=== PATIENT | male | born 1945 | race Caucasian/White ===

== ENCOUNTER → 2017-10-22 11:19 | Outpatient (CLI) | payer MEDICARE, OTHER | END | disposition home or self-care (01) | LOC: D.CT 10-18 10:00 | DX: R91.8 Other nonspecific abnormal finding of lung field (principal) ==

== ENCOUNTER 2019-04-27 15:46 | Emergency (ER) | payer MEDICARE, OTHER ==
[2019-04-27 15:49] VITALS: Wt 100.5 kg
[2019-04-27] MEDS ORDERED: ROPINIROLE HCL2 MG PO (15:55)
[2019-04-27] MEDS ORDERED: BACLOFEN10 MG PO (15:55)
[2019-04-27 16:30] LABS: APTT 34.8 SECONDS (22.8-39.4); INR 1.05 (0.85-1.17); PROTIME 13.2 SECONDS (11.6-15.0)
[2019-04-27 16:32] LABS: BASOPHILS 1.3 % (0-2); EOSINOPHILS 4.1 % (0-7); HEMATOCRIT 42.2 % (42.0-54.0); HEMOGLOBIN 15.1 g/dL (13.5-17.5); IMMATURE GRANULOCYTES 0.1 % (0-5); LYMPHOCYTES 23.3 % (15-50); MCH 32.5 pg (26.0-34.0); MCHC 35.8 g/dL (31.0-37.0); MCV 90.9 fL (80.0-100.0); MEAN PLATELET VOLUME 10.5 fL (7.4-10.4); MONOCYTES 8.2 % (2-11); PLATELET COUNT 197 10x3/uL (130-400); RBC 4.64 10x6/uL (4.20-6.10); RDW 14.1 % (11.5-14.5); WBC 7.6 10x3/uL (4.8-10.8)
[2019-04-27 16:38] LABS: ALBUMIN 3.8 g/dL (3.4-5.0); ALKALINE PHOSPHATASE 70 U/L (46-116); ALT (SGPT) 27 U/L (10-68); BILIRUBIN - TOTAL 0.66 mg/dL (0.2-1.3); CALC OSMOLALITY 289 mosm/kg (275-300); CALCIUM 8.4 mg/dL (8.5-10.1); CARBON DIOXIDE 29.3 mmol/L (21.0-32.0); CHLORIDE - SERUM 106 mmol/L (98-107); CREATININE - SERUM 1.3 mg/dL (0.6-1.3); GLUCOSE 154 mg/dL (74-106); POTASSIUM - SERUM 3.7 mmol/L (3.5-5.1); PROTEIN - SERUM 6.9 g/dL (6.4-8.2); SODIUM 143 mmol/L (136-145); UREA NITROGEN 17 mg/dL (7-18); eGFR NON AFRICAN AMERICAN 57 mL/min (90-120)
[2019-04-27 16:49] LABS: CKMB 4.4 U/L (0.0-3.6); CREATINE KINASE 333 UL (21-232); MAGNESIUM - SERUM 1.5 mg/dL (1.8-2.4); THYROID STIMULATING HORMONE 0.85 uIU/mL (0.36-3.74); TROPONIN-I 0.031 ng/mL (0.000-0.060)
[2019-04-27 18:27] VITALS: BP 135/96
== END 2019-04-27 18:27 | disposition home or self-care (01) ==
LOC: D.ER 15:46
PROVIDERS: Family Medicine
DX: I95.1 Orthostatic hypotension (principal); R53.1 Weakness

== ENCOUNTER → 2019-05-22 14:10 | Outpatient (CLI) | payer MEDICARE, OTHER ==
[~2019-05-22 14:10] MED LIST: BACLOFEN10 MG PO; ROPINIROLE HCL2 MG PO
== END | disposition home or self-care (01) ==
LOC: D.RT 05-12 15:00
PROVIDERS: ATTEND Family Medicine
DX: J42 Unspecified chronic bronchitis (principal)

== ENCOUNTER → 2019-08-01 16:06 | Outpatient (CLI) | payer MEDICARE, OTHER | END | disposition home or self-care (01) | LOC: D.MRI 16:00 | PROVIDERS: ATTEND Clinical Nurse Specialist Family Health | DX: M54.16 Radiculopathy, lumbar region (principal) ==

== ENCOUNTER → 2019-12-24 11:28 | Outpatient (CLI) | payer MEDICARE, OTHER | END | disposition home or self-care (01) | LOC: D.HCCECHO 11:28 | PROVIDERS: ATTEND Internal Medicine Interventional Cardiology | DX: I20.9 Angina pectoris, unspecified (principal) ==

== ENCOUNTER 2020-01-12 08:10 | Outpatient (CLI) | payer MEDICARE, OTHER ==
[~2020-01-12] VITALS: Ht 172.7 cm; Wt 104.7 kg
--- NOTE | ~2020-01-12 | HEMODYNAMI ---
PATIENT:JAEL MOORE MEDICAL RECORD: [id number] : 45 LOCATION:[facility] ADMISSION DATE: 01/12/20 Generatedon:01/12/202011:31 Patient name: JAEL MOORE Patient #: [id number] SSN: [id number] : 1945 Date of study: 01/12/2020 Page: Of Hemodynamic Procedure Report Patient Data Patient Demographics Procedure consent was obtained First Name: JAEL Gender: Male Last Name: TERESA Suffix: Jr Lorena Initial: LOGAN : 1945 Patient #: [id number] Age: 74 year(s) Race: SSN: [id number] Additional ID: [id number] Contact details [address]: [address] [place] [address] [place] State: [place] City: [place] Zip code: [address] Admission Admission Data Admission Date: 01/12/2020 Admission Time: 8:10 Arrival Date: 01/12/2020 Arrival Time: 0:00 Admit Source: Other Insurance Payor: Medicare [facility] #: [id number] Height (in.): 68 BSA: 2.17 (m2) Height (cm.): 172.72 BMI: 35.1 (kg/m2) Weight (lbs.): 230.87 Weight (kg.): 104.72 Lab Results Lab Result Date: 01/12/2020 Lab Result Time: 0:00 Biochemistry Name Units Result Min Max BUN mg/dl 28 --(----)-* 7 18 Creatinine mg/dl 1.4 --(----)*- 0.6 1.3 eGFR ml/min 53 *-(----)-- 90 120 NONAFRICAN CBC Name Units Result Min Max Hematocrit % 52 --(---*)-- 42 54 Hemoglobin g/dl 17.8 --(----)*- 13.5 17.5 Procedure Procedure Types Cath Procedure Diagnostic Procedure LHC LHC w/Coronaries Sedation Charges Moderate Sedation up to 15 minutes PCI Procedure Coronary Stent Coronary Stent Initial Hemochron ACT Test Procedure Description Procedure Date Procedure Date: 01/12/2020 Procedure Start Time: 10:51 Procedure End Time: 11:22 Procedure Staff Name Function Sophie Alaniz RT Monitor Lupillo Buckley RN Nurse Toño Ken MD Performing Physician Laila Phillips RT Scrub Procedure Data Cath Procedure Fluoroscopy Diagnostic fluoroscopy Total fluoroscopy Time: 7.9 time: 7.9 min min Diagnostic fluoroscopy Total fluoroscopy dose: dose: 1372 mGy 1372 mGy Contrast Material Contrast Material Type Amount (ml) Isovue 300 113 Entry Location Entry Primary Successful Side Size Upsize Upsize Entry Closure Sweet ccessful Closure Location (Fr) 1 (Fr) 2 (Fr) Remarks Device Remarks Radial Right 6 Fr artery Short Femoral Right 6 Fr Manual artery Short Compression Estimated blood loss: 5 ml Diagnostic catheters Device Type Used For End Catheter Placement DIAGNOSTIC [place] 110cm 5 Multi-vessel Fr catheter ([id number]) Angiography Procedure Complications No complications Procedure Medications Medication Administration Route Dosage Oxygen etCO2 Nasal cannula 2 l/min Lidocaine 2% added to field 20 Heparin Flush Bag added to field 2 bags (1000units/500ml NS) 0.9% NaCl I.V. 100 ml/hr Versed I.V. 2 mg Fentanyl I.V. 50 mcg Versed I.V. 1 mg Radial Cocktail I.A. 1 syringe (Verapamil 2mg/Nitro 400mcg/Heparin 1500units) Versed I.V. 1 mg Heparin Bolus I.V. 4000 units Integrilin (Bolus I.V. 9.5 ml 2mg/ml) Versed I.V. 1 mg Hemodynamics Rest HGB: 17.8 (g/dl) Heart Rate: 90 (bpm) Pressure Samples Time Site Value (mmHg) Purpose Heart Use Rate(bpm) 10:54 LV 91/47,39 Snapshot 91 Gradients Valve Time Site Site Mean SEP/DFP Peak To Heart Use 1 2 (mmHg) (sec/min) Peak Rate (mmHg) (bpm) Aortic 10:54 LV AO 81 Snapshots Pre Cath Intra NCS Post Cath Vital Signs Time Heart Resp SPO2 etCO2 NIBP Rhythm Pain Sedation Rate (ipm) (%) (mmHg) (mmHg) Status Level (bpm) 10:43:17 87 16 98 0 89/64(79) A-Fib 0 (11) 10(A) , No pain 10:48:23 100 20 96 0 111/72(96) A-Fib 0 (11) 10(A) , No pain 10:52:43 89 12 98 0 107/69(86) A-Fib 0 (11) 10(A) , No pain 10:56:57 115 15 96 0 115/77(95) A-Fib 0 (11) 9(A) , No pain 11:01:15 94 14 95 0 99/73(84) A-Fib 0 (11) 9(A) , No pain 11:05:37 90 26 94 0 113/59(93) A-Fib 0 (11) 9(A) , No pain 11:09:59 91 27 94 0 110/65(82) A-Fib 0 (11) 9(A) , No pain 11:14:19 87 12 95 0 109/79(93) A-Fib 0 (11) 9(A) , No pain 11:18:42 89 15 97 0 120/75(87) A-Fib 0 (11) 10(A) , No pain Medications Time Medication Route Dose Verified Delivered Reason Not es Effectiveness by by 10:43:40 Oxygen etCO2 2 l/min Toño Wesley used for Nasal St Jd Buckley RN procedure cannula 10:44:35 Lidocaine 2% added 20ml Toño Wardie for local to vial St Jd Buckley RN anesthetic field SARKAR 10:44:43 Heparin Flush added 2 bags Toño Wesley used for Bag to St Jd Buckley RN procedure (1000units/500ml field SARKAR NS) 10:44:51 0.9% NaCl I.V. 100 Toño Wesley Per physician ml/hr St Jd Buckley RN, MD 10:46:36 Versed I.V. 2 mg Toño Wesley for sedation St Jd Buckley RN, MD 10:46:46 Fentanyl I.V. 50 mcg Toño Wesley for sedation St Jd Buckley RN, MD 10:53:13 Versed I.V. 1 mg Toño Wardie for sedation St Jd Buckley RN, MD 10:53:21 Radial Cocktail I.A. 1 Toño Lundberg for (Verapamil syringe St Jd Ken vasodilation 2mg/Nitro MD SARKAR 400mcg/Hepari 10:59:48 Versed I.V. 1 mg Toño Wesley for sedation St Jd Buckley RN, MD 11:01:10 Heparin Bolus I.V. 4000 Toño Wesley for tereista ified units St Jd Buckley RN anticoagulation with dr MD mast 11:02:42 Integrilin I.V. 9.5 ml Toño Wesley for Was duyen (Bolus 2mg/ml) St Jd Buckley RN antiplatelet 0.5 ml therapy of vial 11:14:05 Versed I.V. 1 mg Toño Wesley for sedation St Jd Buckley RN, MD Procedure Log Time Note 10:13:02 Informed consent obtained and on chart 10:13:20 Diagnostic Cath Status : Elective 10:13:41 Arrival Date: 01/12/2020 12:00:00 AM 10:14:24 Admit Source: Other 10:15:06 Lab Result : Hemoglobin 17.8 g/dl 10:15:06 Lab Result : Hematocrit 52 % 10:15:06 Lab Result : eGFR NONAFRICAN 53 ml/min 10:15:06 Lab Result : BUN 28 mg/dl 10:15:06 Lab Result : Creatinine 1.4 mg/dl 10:15:10 Patient Height : 68 inches 10:15:15 Patient Weight : 230.87 lbs 10:15:26 Insurance Payor : Medicare 10:20:02 Laila Phillips RT(R) sent for patient. Start room use. 10:30:19 Time tracking: Regular hours (M-F 7:00 - 5:00) 10:30:24 Plan of Care:Hemodynamics will remain stable., Cardiac rhythm will remain stable., Comfort level will be maintained., Respiratory function will remain adequate., Patient/ family verbilizes understanding of procedure., Procedure tolerated without complication., Recovers from procedure without complications.. 10:30:30 Patient received from Pre/Post Procedure Room to CCL 1 Alert and oriented. Tansferred to table in Supine position. 10:30:31 Warm blankets applied, and vinita hugger turned on for patient comfort. 10:30:32 Correct patient and procedure confirmed by team. 10:30:34 ECG and BP/O2 sat monitors applied to patient. 10:41:57 Vital chart was started 10:41:58 Baseline sample Acquired. 10:42:03 Rhythm: sinus tachycardia 10:42:05 Full Disclosure recording started 10:42:09 H&P Date Dictated: 01/12/2020 Within 30 days and on chart., H&P Addendum completed by physician on day of procedure. (MUST COMPLETE FOR ALL OUTPATIENTS). 10:42:10 Pre-procedure instructions explained to patient. 10:42:11 Pre-op teaching completed and patient verbalized understanding. 10:42:13 Family in patients room. 10:42:14 Patient NPO since Midnight. 10:42:18 Is the patient allergic to Iodine/contrast media? No. 10:42:19 Was the patient premedicated? Yes 10:42:21 Is patient on blood thinner?Yes 10:42:32 ACC The patient was administered the following blood thiners within the last 24 hours: Xarelto 10:42:34 Patient diabetic? No. 10:42:37 Previous problem with sedation/anesthesia? No ? 10:42:39 Snore? Yes 10:42:41 Sleep apnea? No 10:42:43 Deviated septum? No 10:42:45 Sticks out tongue? Yes 10:42:45 Opens mouth fully? Yes 10:42:47 Airway obstruction? No ? 10:42:54 Dentures? No ? 10:42:58 Pre procedure: right dorsailis pedis pulse 2+ Normal; easily identifiable; not easily obliterated 10:43:01 Pre procedure: left dorsailis pedis pulse 2+ Normal; easily identifiable; not easily obliterated 10:43:05 Patient pain scale 0/10 ?. 10:43:11 IV patent on arrival in left forearm with 0.9% NaCl at O. 10:43:13 Lab results completed and on chart. 10:43:33 Stress Test: yes; abnormal inferior, apical 10:43:37 Risk of Mortality: 0.4 10:43:40 Oxygen 2 l/min etCO2 Nasal cannula was administered by Lupillo Buckley RN; used for procedure; Verbal order read back and verified. 10:43:41 Risk of blood transfusion: 0.2 10:43:45 Risk of JAMEE: 2.8 10:44:35 Lidocaine 2% 20ml vial added to field was administered by Lupillo Buckley RN; for local anesthetic; Verbal order read back and verified. 10:44:43 Heparin Flush Bag (1000units/500ml NS) 2 bags added to field was administered by Lupillo Buckley RN; used for procedure; Verbal order read back and verified. 10:44:50 Right Radial & Right Groin area was prepped with chlora-prep and draped in sterile fashion 10:44:51 0.9% NaCl 100 ml/hr I.V. was administered by Lupillo Buckley RN; Per physician; Verbal order read back and verified. 10:44:53 Sharps counted by scrub and verified by R.N. 10:44:53 Alarms reviewed by R. N. 10:44:54 Physician arrived 10:44:55 Final Timeout: patient, procedure, and site verified with staff and physician. All members of the team are in agreement. 10:44:55 --------ALL STOP TIME OUT------ 10:44:57 Right Radial & Right Groin site verified by team. 10:45:00 Fire Safety Assessment: A--An alcohol-based skin anteseptic being used preoperatively., C--Open oxygen or nitrous oxide is being used., D--An ESU, laser, or fiber-optic light is being used. 10:45:04 Physical assessment completed. ASA score P 2 - A patient with mild systemic disease as per Toño Ken MD. 10:46:29 3a) 45-59 Moderately reduced kidney function. 10:46:36 Versed 2 mg I.V. was administered by Lupillo Buckley RN; for sedation; Verbal order read back and verified. 10:46:46 Fentanyl 50 mcg I.V. was administered by Lupillo Buckley RN; for sedation; Verbal order read back and verified. 10:46:53 Maximum allowable contrast dose (3.7 X eGFR X 0.75)155 ml. 10:46:58 Sedation plan: IV Moderate Sedation Medication:Versed, Fentanyl 10:47:02 Use device set Radial Dx or PCI 10:47:03 ACIST Syringe (71411) opened to sterile field. 10:47:04 ACIST Hand Control (95600) opened to sterile field. 10:47:04 Bag Decanter (2001S) opened to sterile field. 10:47:04 Medline Cath Pack ([id number]) opened to sterile field. 10:47:05 Tegaderm 4 x 4 (1626W) opened to sterile field. 10:47:05 ACIST Manifold (39389) opened to sterile field. 10:47:06 MBrace Wrist Support ([id number]) opened to sterile field. 10:47:08 EMERALD Guide Wire (502-554) opened to sterile field. 10:47:09 SHEATH 6FR RAIN (1890891) opened to sterile field. 10:49:36 Zero performed for pressure channel P1 10:51:38 Procedure started. 10:51:42 Local anesthetic to right radial artery with Lidocaine 2% by Toño Ken MD.INITIAL ACCESS ONLY 10:51:52 A 6 Fr Short sheath was inserted into the Right Radial artery 10:53:01 A DIAGNOSTIC [place] 110cm 5 Fr catheter (222782) was advanced over the wire and used for Multi-vessel Angiography. 10:53:13 Versed 1 mg I.V. was administered by Lupillo Buckley RN; for sedation; Verbal order read back and verified. 10:53:21 Radial Cocktail (Verapamil 2mg/Nitro 400mcg/Heparin 1500units) 1 syringe I.A. was administered by Toño Ken MD; for vasodilation; Verbal order read back and verified. 10:54:26 LV hemodynamics recorded. 10:54:27 LV gram done using JENKINS 10:54:29 Injector settings: Ml/sec: 5, Volume: 15, 10:54:35 EF : 50 % 10:54:58 LCA angiography performed. 10:55:00 Injector settings: Ml/sec: 3, Volume: 6, 10:56:55 RCA angiography performed. 10:56:59 Injector settings: Ml/sec: 3, Volume: 6, 10:57:54 Catheter removed. 10:57:57 ACCDominant side:Right 10:58:02 Proceeding to intervention. 10:58:31 SHEATH 6FR [place] (VTC084) opened to sterile field. 10:58:32 INFLATOR Merit BasixCompak (WT8964) opened to sterile field. 10:58:33 WHISPER 300cm guide wire ([id number]) opened to sterile field. 10:59:16 Local anesthetic to right femoral artery with Lidocaine 2% by Toño Ken MD.ADDITIONAL ACCESS 10:59:34 GUIDE 6FR EBU 3.5 catheter ([id number]) opened to sterile field. 10:59:48 Versed 1 mg I.V. was administered by Lupillo Buckley RN; for sedation; Verbal order read back and verified. 11:00:15 A 6 Fr Short sheath was inserted into the Right Femoral artery 11:00:51 6 Fr 3bu 3.5 guide catheter was inserted over the wire 11:01:10 Heparin Bolus 4000 units I.V. was administered by Lupillo Buckley RN; for anticoagulation; verified with dr mast Verbal order read back and verified. 11:02:42 Integrilin (Bolus 2mg/ml) 9.5 ml I.V. was administered by Lupillo Buckley RN; for antiplatelet therapy; Wasted 0.5 ml of vial Verbal order read back and verified. 11:10:11 whisper wire advanced. 11:10:12 Wire advanced across lesion. 11:11:29 Place stent Inflation Number: 1 A LAYO OTW 3.0 x 26 stent ([id number]) was prepped and advanced across the Mid LAD 80. The stent was deployed at 14 GARCIA for 0:30 (min:sec) 0. 11:13:19 Stent catheter was removed intact over wire. 11:14:05 Versed 1 mg I.V. was administered by Lupillo Buckley RN; for sedation; Verbal order read back and verified. 11:15:49 Place stent Inflation Number: 2 A LAYO RX 3.0 x 15 stent ([id number]) was prepped and advanced across the Mid LAD 80. The stent was deployed at 15 GARCIA for 0:30 (min:sec) 0. 11:16:32 Stent catheter was removed intact over wire. 11:16:33 Wire removed. 11:16:34 Guide catheter removed. 11:16:44 ZEPHYR REGULAR TR BAND (159407) opened to sterile field. 11:17:31 Sheath removed intact; hemostasis achieved with Manual Compression to the Right Femoral artery. 11:18:13 Procedure ended.(Physican Out) 11:18:24 Fluoroscopy time 07.90 minutes. 11:18:29 Fluoroscopy dose: 1372 mGy 11:18:29 Flurop Dose total: 1372 11:18:35 Dose Area Product 79513 mGy/cm. 11:18:40 Contrast amount:Isovue 300 113ml. 11:18:42 Maximum allowable dose exceeded? No. 11:18:45 Sharps counted by scrub and verified by R.N. 11:19:01 Post-op/insertion site Right Femoral artery dressed using a 4 x 4 and Tegaderm. 11:19:02 Post Procedure Pulses reassessed and unchanged 11:19:06 Post procedure rhythm: sinus rhythm 11:19:10 Estimated blood loss: 5 ml 11:19:13 Post procedure instruction explained to patient.Patient verbalizes understanding. 11:19:14 Patient needs reinforcement of post procedure teaching. 11:19:34 Procedure type changed to Cath procedure, Diagnostic procedure, LHC, [facility] w/Coronaries, Sedation Charges, Moderate Sedation up to 15 minutes, PCI procedure, Coronary Stent, Coronary Stent Initial, Hemochron ACT Test 11:19:38 Procedure and supply charges have been captured, reviewed, submitted and are correct. 11:19:49 Procedure Complication : No complications 11:19:51 Vital chart was stopped 11:19:[address] [facility] Findings: MVD- PCI performed (see procedure note) 11:19:57 Operative report dictated upon procedure completion. 11:20:00 Operative report dictated upon procedure completion. 11:20:03 See physician's report for complete and final results. 11:20:07 Patient transfered to Pre/Post Procedure Room with Stretcher. 11:20:16 ACC-PCI Only Patient was given prescriptions, or instructed by Toño Ken MD to start/continue the following medications upon discharge: Plavix 11:20:18 End room use (Document Last) 11:22:15 Full Disclosure recording stopped 11:22:15 Procedure ended. 11:23:21 ACT drawn and resulted at 370 seconds. (normal therapeutic range 180-240 seconds). 11:30:26 EXOSEAL 6Fr (EX600) opened to sterile field. 11:31:18 Femstop placed over the right femoral artery at 150 mmHg. Hemostasis achieved. Intervention Summary Intervention Notes Time ActionType Lesion and Equipment Used Action# Pressure Duration Attributes 11:11:29 Place stent Mid LAD LAYO OTW 3.0 x 1 14 00:30 26 stent ([id number]) 11:15:49 Place stent Mid LAD LAYO RX 3.0 x 2 15 00:30 15 stent ([id number]) Device Usage Item Name Manufacture Quantity Catalog Hospital Part Current [facility] Lot# / Number Charge Number Stock Stock Serial# Code ACIST Syringe Acist 1 96484 425336 593131 226029 20 (70746) Medical Systems Inc Medline Cath Medline 1 [id number] 182887 07331 039466 5 Pack ([id number]) Bag Decanter Microtek 1 2001S 898030 09352 125266 5 (2001S) Medical Inc. ACIST Hand Acist 1 87794 676158 421770 248872 5 Control Medical (23685) Systems Inc ACIST Manifold Acist 1 24561 013773 116025 979447 5 (63009) Medical Systems Inc Tegaderm 4 x 4 3M 1 1626W 224368 894361 971084 5 (1626W) MBrace Wrist Advanced 1 140-0250-00 352504 84340 265119 5 Support Vascular ([id number]) Dynamics EMERALD Guide Cardinal 1 502-455 773693 506865 961852 5 Wire (502-455) Health SHEATH 6FR Cardinal 1 2468809 460228 8107574 655801 5 RAIN (4060066) Health DIAGNOSTIC Terumo 1 40-5013 974934 680805 488613 5 [place] 110cm 5 Fr catheter (983709) SHEATH 6FR Terumo 1 UJR631 896627 910392 205890 40 [place] (PNG844) INFLATOR Merit Merit 1 RI9904 293982 924816 892084 15 BasV2contactFillmore Community Medical Centertriptap Medical (GJ5163) WHISPER 300cm Cueva 1 [id number] 744472 032994 521568 5 guide wire Vascular (4468549CL) GUIDE 6FR EBU Medtronic 1 [id number] 537326 92679 424345 3 3.5 catheter ([id number]) LAYO OTW 3.0 x Medtronic 1 [id number] 420024 3493100 079677 5 [id number] 26 stent ([id number]) LAYO RX 3.0 x Medtronic 1 [id number] 419292 2875568 534406 5 [id number] 15 stent ([id number]) ZEPHYR REGULAR Cardinal 1 025273 550656 6448657 732580 5 TR BAND Health (879773) EXOSEAL 6Fr Cardinal 1 EX600 184246 866773 027539 10 (EX600) Health Signature Audit [place] Stage Time Signature Unsigned Intra-Procedure 01/12/2020 Sophie Alaniz 11:22:38 AM RT(R) Intra-Procedure 01/12/2020 Sophie Alaniz 11:22:52 AM RT(R) Intra-Procedure 01/12/2020 Lupillo Buckley RN 11:23:19 AM Intra-Procedure 01/12/2020 Toño Ken MD 11:23:44 AM Jd SARKAR 01/12/2020 11:30:22 AM Intra-Procedure 01/12/2020 Toño House 11:31:32 AM Jd SARKAR [id number] [place] [address]
[2020-01-12] MEDS ORDERED: AMIODARONE HCL200 MG PO (08:28)
[2020-01-12] MEDS ORDERED: COREG12.5 MG PO (08:29)
[2020-01-12] MEDS ORDERED: XARELTO20 MG PO (08:29)
[2020-01-12] MEDS ORDERED: TRIAMTERENE-HC1 EAC6 PO (08:31)
[2020-01-12] MEDS ORDERED: LEVOTHYROXINE125 MCG PO (08:32)
[2020-01-12 08:46] VITALS: BP 141/80; Ht 172.7 cm; Wt 104.7 kg
[2020-01-12 08:55] LABS: BASOPHILS 1.3 % (0-2); EOSINOPHILS 5.1 % (0-7); HEMOGLOBIN 17.8 g/dL (13.5-17.5); IMMATURE GRANULOCYTES 0.3 % (0-5); LYMPHOCYTES 26.1 % (15-50); MCH 32.6 pg (26.0-34.0); MCHC 34.2 g/dL (31.0-37.0); MCV 95.2 fL (80.0-100.0); MEAN PLATELET VOLUME 10.9 fL (7.4-10.4); NEUTROPHILS 58.2 % (40-80); PLATELET COUNT 185 10x3/uL (130-400); RBC 5.46 10x6/uL (4.20-6.10); RDW 13.7 % (11.5-14.5)
[2020-01-12 09:10] LABS: ANION GAP 10.9 mmol/L (8-16); CARBON DIOXIDE 27.3 mmol/L (21.0-32.0); CHOL - HDL RATIO 6.1 ratio (2.3-4.9); CREATININE - SERUM 1.4 mg/dL (0.6-1.3); POTASSIUM - SERUM 4.2 mmol/L (3.5-5.1)
--- NOTE | 2020-01-12 11:40 | NUR ---
PT RECEIVED BACK TO ROOM FROM DIRECTOR REGULATORY AFFAIRS FOR RECOVERY. PT DROWSY BUT THRASHING IN BED DUE TO BACK PAIN AND RESTLESS LEG. R ARM WRIST W ZYPHER BAND AND IMMOBILIZER IN PLACE, DRESSING CDI NO S/S HEMATOMA OR BLEEDING NOTED. ARM PINK AND WARM, CAP REFILL BRISK. R GROIN W FEMOSTOP, 160 PRESSURE ON ARRIVAL. NO BLEEDING NOTED, SMALL AREA HEMATOMA NOTED, WILL WATCH. NO BLEEDING NOTED. LEG PINK AND WARM, PEDAL PUSLES PALPABLE BUT WEAK DUE TO FEMOSTOP. PT AND INSTRUCTED ON IMPORTANCE OF KEEPING HEAD ON PILLOW AND LEG STRAIGHT. PT PLACED ON CARDIAC MONITORS AND O2 VIA NC AT 2L. HR 75, BP 109/62, RR 15, SAT 96. IV PATENT INFUSING VIA R ARM. AT BS, CALL LIGHT IN REACH
--- NOTE | 2020-01-12 11:58 | NUR ---
PT C/O BACK PAIN WON'T STAY STILL OR KEEP LEG STRAIGHT. 2MG MORPHINE GIVEN SIVP PER ORDERS. VSS. R GROIN W FEMOSTOP IN PLACE, NO ACTIVE BLEEDING NOTED, SMALL AREA HEMATOMA NO CHANGE. CALL LIGHT IN REACH
--- NOTE | 2020-01-12 12:10 | NUR ---
PT RESTING A LITTLE MORE COMFORTABLY, PAIN LESS 5/10. ZBAND AND IMMOBILIZER IN PLACE, NO BLEEDING OR S/S HEMATOMA NOTED. R GROIN W FEMOSTOP IN PLACE, NO BLEEDING NOTED. NO CHANGE IN SM HEMATOMA. VSS. CALL LIGHT IN REACH, AT BEDSIDE
--- NOTE | 2020-01-12 12:45 | NUR ---
PT RESTING COMFORTABLY, STATES PAIN IS MUCH BETTER. R GROIN AREA SOFT, NO BLEEDING NOTED. FEMOSTOP PRESSURE REDUCED TO 80, NO BLEEDING . ZBAND AND IMMOBILIZER IN PLACE, DRESSING CDI NO S/S HEMATOMA OR BLEEDING NOTED. VSS. CALL LIGHT IN REACH, REMAINS AT BS
[2020-01-12] MEDS ORDERED: PLAVIX75 MG PO (12:54)
--- NOTE | 2020-01-12 13:13 | NUR ---
PT C/O HEARTBURN DUE TO PLAVIX, SIPS OF SPRITE GIVEN. NO BLEEDING OR HEMATOMA TO WRIST, ARM PINK AND WARM. R GROIN REMAINS SOFT, NO BLEEDING NOTED. FEMOSTOP REMAINS IN PLACE. CALL LIGHT IN REACH, VSS.
--- NOTE | 2020-01-12 13:41 | NUR ---
REMAINING AIR REMOVED FROM FEMOSTOP, NO BLEEDING NOTED. ZBAND AND IMMOBILIZER IN PLACE, NO BLEEDING OR S/S HEMATOMA NTOED. VSS. PUDDING GIVEN PER PT REQUEST. REMAINS AT BS, CALL LIGHT IN REACH
--- NOTE | 2020-01-12 14:01 | NUR ---
FEMOSTOP REMOVED, NO BLEEDING OR HEMATOMA NOTED. 4X4 AND LG TEGADERM DRESSING APPLIED. LEG PINK AND WARM, PEDAL PULSES PALPABLE. ZBAND AND IMMOBILIZER REMAIN IN PLACE, NO S/S HEMATOMA NOTED. PT TOLERATING PO FLUIDS AND PUDDING.
--- NOTE | 2020-01-12 14:20 | NUR ---
R GROIN SOFT, DRESSING CDI NO S/S HEMATOMA OR BLEEDING. ZBAND IN PLACE, 4CC AIR REMOVED W/O BLEEDING OR HEMATOMA NTOED. HOB ELEVATED SLIGHTLY, SANDWICH TRAY AND COLA SERVED. HR 62, BP 108/76, RR 14, SAT 98 ON ROOM AIR AFTER O2 REMOVED.
--- NOTE | 2020-01-12 14:42 | NUR ---
3 ADD'L CC AIR REMOVED FROM Z BAND, NO BLEEDING NOTED. R GROIN REMAINS SOFT, DRESSING CDI NO S/S HEMATOMA OR BLEEDING NOTED. PT TOLERATING PO FLUIDS AND FOOD. PT DENIES PAIN OR HEARTBURN. VSS. REMAINS AT BEDSIDE.
--- NOTE | 2020-01-12 15:00 | NUR ---
DISCHARGE INSTRUCTIONS REVIEWED W PT AND , BOTH VERBALIZED UNDERSTANDING. EXPLAINED IMPORTANCE OF GETTING PLAVIX FILLED AND STARTING IT TOMORROW. IV REMOVED W CATH INTACT, MONITORS REMOVED. REMAINING AIR REMOVED FROM ZBAND, NO BLEEDING OR S/S HEMATOMA. R GROIN SOFT, DRESSING REMAINS CDI NO S/S HEMATOMA. PT UP TO DRESS FOR DISCHARGE W ASSIST FROM .
--- NOTE | 2020-01-12 15:10 | NUR ---
PT AMBULATED TO BR, VOIDING W/O DIFFICULITY. ZBAND REMOVED, NO BLEEDING OR HEMATOMA NOTED. 2X2 AND SM TEGADERM DRESSING APPLIED. IMMOBILIZER REPOSITIONED
--- NOTE | 2020-01-12 15:22 | NUR ---
PT DISCHARGED VIA WC TO WAITING IN PRIVATE VEHICLE. PT HAD ALL BELONGINGS AND DISCHARGE PAPERWORK IN HAND
--- NOTE | 2020-01-13 13:51 | OP ---
PATIENT NAME: JAEL MOORE MEDICAL RECORD: [id number] :45 LOCATION:D.CAT ADMISSION DATE: SURGEON: ANNA MCPHERSON MD DATE OF OPERATION: 01/12/2020 PROCEDURE: Left heart catheterization, selective coronary angiography, right femoral artery approach. CATHETERS: A 5-Anguillan sheath, 5/4 left and right Janell, 5/4 pig. The procedure was well tolerated. The patient returned to the lyman, sheath removed. ExoSeal device placed. FINDINGS: Left ventriculography in 30-degree JENKINS view; normal wall motion, normal systolic function. EF is 55%. CORONARY ANATOMY: LEFT MAIN: Left main is free of disease. LAD: Has a long diffuse 80% stenosis, correlating nicely with anterior apical defect on nuke. CIRCUMFLEX: Left dominant system luminal irregularities, free of disease. RIGHT CORONARY ARTERY: Rudimentary vessel, free of disease. PLAN: Intervention LAD momentarily. DESCRIPTION OF PROCEDURE: A 5-Anguillan sheath was changed to 6-Anguillan sheath. XB LAD guiding catheter provided excellent guide catheter followed by 300 cm Whisper wire placed across, tightly occluded 80% LAD down this portion of the vessel. Stents deployed were a 3.0 x 22 and a 3.0 x 15, both drug-eluting stents up to 16 atmospheres for 45 seconds. Final angiography shows excellent resolution, diffuse 80% stenosis, no significant residual. BELÉN flow was 3 throughout the procedure. Heparin, Integrilin were used during the case. Plavix was loaded in the lab. Sheath was closed with ExoSeal device. TRANSINT:[id number] Voice Confirmation ID: [id number] DOCUMENT ID: [id number] ANNA MCPHERSON MD at 1351 CC: [id number] DICTATION DATE: 01/12/20 1132 LATIN DANCE INSTRUCTOR: 01/12/20 2342 DEP CLI 01/12/20 [place] [id number]
== END 2020-01-12 15:20 | disposition home or self-care (01) ==
LOC: D.CATH 08:10
PROVIDERS: ATTEND Internal Medicine Interventional Cardiology
DX: I25.119 Atherosclerotic heart disease of native coronary artery with unspecified angina pectoris (principal); R06.00 Dyspnea, unspecified; I48.91 Unspecified atrial fibrillation; I10 Essential (primary) hypertension; R01.1 Cardiac murmur, unspecified
CPT/HCPCS: 93458; C9600

== ENCOUNTER → 2020-03-09 08:03 | Outpatient (CLI) | payer MEDICARE, OTHER ==
[2020-01-12 08:46] VITALS: BMI 35.1
[~2020-03-09 08:03] MED LIST changes: +AMIODARONE HCL200 MG PO; +COREG12.5 MG PO; +LEVOTHYROXINE125 MCG PO; +PLAVIX75 MG PO; +TRIAMTERENE-HC1 EAC6 PO; +XARELTO20 MG PO
== END | disposition home or self-care (01) ==
LOC: D.CT 08:03
PROVIDERS: ATTEND Family Medicine
DX: I70.213 Atherosclerosis of native arteries of extremities with intermittent claudication, bilateral legs (principal)

== ENCOUNTER → 2020-04-07 07:55 | Day surgery (SDC) | payer MEDICARE, OTHER ==
[2020-01-12 08:46] VITALS: BMI 35.1
[~2020-04-07 07:55] MED LIST changes: +BETAPACE 80 MG80 MG PO; +BISOPROLOL FUMAR5 MG PO
[2020-04-07 08:17] LABS: BASOPHILS 0.6 % (0-2); EOSINOPHILS 0.4 % (0-7); HEMOGLOBIN 15.1 g/dL (13.5-17.5); IMMATURE GRANULOCYTES 0.1 % (0-5); LYMPHOCYTES 13.8 % (15-50); MCH 33.7 pg (26.0-34.0); MCHC 35.1 g/dL (31.0-37.0); MEAN PLATELET VOLUME 10.5 fL (7.4-10.4); MONOCYTES 7.2 % (2-11); NEUTROPHILS 77.9 % (40-80); PLATELET COUNT 186 10x3/uL (130-400); RBC 4.48 10x6/uL (4.20-6.10); WBC 6.8 10x3/uL (4.8-10.8)
[2020-04-07 08:29] LABS: CALCIUM 9.3 mg/dL (8.5-10.1); CARBON DIOXIDE 25.2 mmol/L (21.0-32.0); CREATININE - SERUM 1.8 mg/dL (0.6-1.3); POTASSIUM - SERUM 4.2 mmol/L (3.5-5.1)
[2020-04-07 08:34] LABS: INR 1.89 (0.85-1.17); PROTIME 21.5 SECONDS (11.6-15.0)
[2020-04-07 08:35] LABS: APTT 51.8 SECONDS (22.8-39.4)
--- NOTE | 2020-04-07 08:54 | NUR ---
0875-ABNORMAL LAB VALUES CALLED TO IOANA VELAZQUEZ RN AND DR. RADFORD-PROCEDURE CANCELLED. INSTRUCTIONS GIVEN TO PATIENT AND . 0850-PT. LEFT AMBULATORY WITH AT SIDE.
== END | disposition home or self-care (01) ==
LOC: D.RAD 04-01 13:00 → D.SP 07:55 → D.RAD 10:00 → EDSTATUS 10:00 → D.SP 10:00
PROVIDERS: ATTEND General Practice
DX: L97.529 Non-pressure chronic ulcer of other part of left foot with unspecified severity (principal); I72.3 Aneurysm of iliac artery; I70.209 Unspecified atherosclerosis of native arteries of extremities, unspecified extremity; Z53.9 Procedure and treatment not carried out, unspecified reason

== ENCOUNTER 2020-04-16 11:40 | Day surgery (SDC) | payer MEDICARE, OTHER ==
[~2020-04-16] VITALS: Ht 172.7 cm; Wt 104.5 kg
--- NOTE | ~2020-04-16 | HEMODYNAMI ---
PATIENT:JAEL MOORE MEDICAL RECORD: [id number] : 45 LOCATION:[facility] ADMISSION DATE: 04/16/20 Generatedon:04/16/202015:14 Patient name: JAEL MOORE Patient #: [id number] SSN: [id number] : 1945 Date of study: 04/16/2020 Page: Of Hemodynamic Procedure Report Patient Data Patient Demographics Procedure consent was obtained First Name: JAEL Gender: Male Last Name: TERESA Suffix: Jr [facility] Initial: LOGAN : 1945 Patient #: [id number] Age: 74 year(s) Race: SSN: [id number] Additional ID: [id number] Contact details [address]: [address] [place] [address] [place] State: [place] City: [place] Zip code: [address] Admission Admission Data Admission Date: 04/16/2020 Admission Time: 11:40 Procedure Procedure Types Cath Procedure Peripheral Cath Diagnostic Procedure Abd/Extremity Extremities Procedure Description Procedure Date Procedure Date: 04/16/2020 Procedure Start Time: 13:51 Procedure Staff Name Function Jd Marinelli MD Performing Physician Paco Upton RT Monitor Preston CHINO RN Nurse Elsi Vasquez RN Nurse SRIDHAR PASCAL RT Scrub Celestina Nath RT Scrub Jael Miller MD Additional personnel Procedure Data Cath Procedure Fluoroscopy Diagnostic fluoroscopy Total fluoroscopy Time: 9.9 time: 9.9 min min Diagnostic fluoroscopy Total fluoroscopy dose: 397 dose: 397 mGy mGy Contrast Material Contrast Material Type Amount (ml) Isovue 300 175 Procedure Medications Medication Administration Route Dosage Lidocaine 1% added to field 20 Heparin Flush Bag added to field 3 bags (1000units/500ml NS) Heparin Bolus I.V. 5000 units Nitroglycerin IC/IA I.A. 300 mcg Nitroglycerin IC/IA I.A. 300 mcg Hemodynamics Rest Pre Cath Intra NCS Post Cath Medications Time Medication Route Dose Verified Delivered Reason Notes Effe ctiveness by by 13:29:50 Lidocaine 1% added 20ml Jd Miles for local to vial Isis Marinelli MD anesthetic field SARKAR 13:30:09 Heparin Flush added 3 Jd Miles used for Bag to bags Isis Marinelli MD procedure (1000units/500ml field SARKAR NS) 14:19:02 Heparin Bolus I.V. 5000 Jd Calzada Per units Pedro Marinelli RN physician 14:27:13 Nitroglycerin I.A. 300 Jd Miles IC/IA mcg Isis Marinelli MD MD 14:41:45 Nitroglycerin I.A. 300 Jd Jd IC/IA mcg Isis Marinelli MD MD Procedure Log Time Note 13:14:00 Paco Upton RT (R) (CV) sent for patient. Start room use. 13:14:03 Time tracking: Regular hours (M-F 7:00 - 5:00) 13:14:13 Plan of Care:Hemodynamics will remain stable., Cardiac rhythm will remain stable., Comfort level will be maintained., Respiratory function will remain adequate., Patient/ family verbilizes understanding of procedure., Procedure tolerated without complication., Recovers from procedure without complications.. 13:14:18 Use device set IR Diagnostic 13:14:19 ACIST Syringe (64361) opened to sterile field. 13:14:20 ACIST Hand Control (33430) opened to sterile field. 13:14:20 ACIST Manifold (61726) opened to sterile field. 13:14:21 Bag Decanter (2002S) opened to sterile field. 13:14:21 Sterile Angiographic Pack opened to sterile field. 13:14:21 Tegaderm 4 x 4 (1626W) opened to sterile field. 13:14:34 Jael Miller MD present and monitoring patient for TIVA. 13:14:39 Patient received from Outpatients to IR Alert and oriented. Tansferred to table in Supine position. 13:14:43 Signed procedure consent form obtained from patient. 13:14:44 Warm blankets applied, and vinita hugger turned on for patient comfort. 13:14:45 Correct patient and procedure confirmed by team. 13:14:46 ECG and BP/O2 sat monitors applied to patient. 13:14:48 - 13:15:12 SEE ANESTHESIA NOTE FOR PRE PROCEDURE ANESTHESIA 13:16:37 - 13:17:13 TUBING Contrast Injection High Pressure (IYM470O) opened to sterile field. 13:17:14 SHEATH 5FR Irving (JYN769) opened to sterile field. 13:17:30 3a) 45-59 Moderately reduced kidney function. 13:18:04 Maximum allowable contrast dose (3.7 X eGFR X 0.75)147 ml. 13:18:23 Right groin area was prepped with chlora-prep and draped in sterile fashion 13:29:50 Lidocaine 1% 20ml vial added to field was administered by Jd Marinelli MD; for local anesthetic; Verbal order read back and verified. 13:30:09 Heparin Flush Bag (1000units/500ml NS) 3 bags added to field was administered by Jd Marinelli MD; used for procedure; Verbal order read back and verified. 13:46:27 Alarms reviewed by R. N. 13:46:28 Alarms reviewed by R. N. 13:46:31 Sharps counted by scrub and verified by R.N. 13:51:19 Physician arrived 13:51:20 --------ALL STOP TIME OUT------ 13:51:20 Final Timeout: patient, procedure, and site verified with staff and physician. All members of the team are in agreement. 13:51:22 Bilateral groins site verified by team. 13:51:27 Fire Safety Assessment: A--An alcohol-based skin anteseptic being used preoperatively., C--Open oxygen or nitrous oxide is being used. 13:51:46 Sedation plan: General Anesthesia Medication:General Anesthesia 13:51:54 Procedure started. 13:51:55 Full Disclosure recording started 13:51:59 Local anesthetic to right femoral artery with Lidocaine 1% by Jd Marinelli MD.INITIAL ACCESS ONLY 13:52:08 DOC .035 wire (F54223) opened to sterile field. 13:52:08 Micropuncture VSI 4FR kit opened to sterile field. 13:52:09 DE LA TORRE 260 wire (J31308) opened to sterile field. 13:52:09 GLIDE WIRE ANGLE 180cm (WS4915) opened to sterile field. 13:52:09 Angiodynamics Omniflush 5Fr 65cm ([id number]) opened to sterile field. 13:52:10 GLIDE CATHETER 5FR ANGLED 65cm (CG507) opened to sterile field. 13:56:24 AMPLATZ Super Stiff 75cm wire ([id number]) opened to sterile field. 14:14:26 COOK SHEATH 6FR RAABE 70CM (L71707) opened to sterile field. 14:15:04 INFLATOR BasixTOUCH (KQ1843) opened to sterile field. 14:18:13 CXI SUPPORT .035 135 CM STR catheter (G63213) opened to sterile field. 14:19:02 Heparin Bolus 5000 units I.V. was administered by Elsi Vasquez RN; Per physician; Verbal order read back and verified. 14:20:08 CHOICE PT Extra Support J 300cm guide wire ([id number]) opened to steril e field. 14:27:13 Nitroglycerin IC/IA 300 mcg I.A. was administered by Jd Marinelli MD; ; Verbal order read back and verified. 14:28:03 Inflate balloon Inflation number: 1 A CHOCOLATE 3.0 x 80 x 150 balloon ([id number]) was prepped and advanced across the Undefined1 , then inflated to 14 GARCIA for 1:10 (min:sec) . 14:40:48 Inflate balloon Inflation number: 2 A CHOCOLATE 3.5 x 80 x 135 balloon ([id number]) was prepped and advanced across the Undefined1 , then inflated to 11 GARCIA for 1:04 (min:sec) . 14:41:45 Nitroglycerin IC/IA 300 mcg I.A. was administered by Jd Marinelli MD; ; Verbal order read back and verified. 14:42:37 Inflation number: 3 The CHOCOLATE 3.5 x 80 x 135 balloon ([id number]) was reinflated across the Undefined1 , to 12 GARCIA for 1:03 (min:sec) . 14:53:33 SHEATH 6FR Irving (JOY987) opened to sterile field. 15:00:06 ANGIOSEAL-VIP PLUS 6 FR opened to sterile field. 15:06:27 Procedure ended.(Physican Out) 15:06:46 Fluoroscopy time 09.90 minutes. 15:06:51 Fluoroscopy dose: 397 mGy 15:06:51 Flurop Dose total: 397 15:07:10 Contrast amount:Isovue 300 175ml. 15:11:56 Post-op/insertion site Right Femoral artery dressed using a 4 x 4 and Tegaderm. 15:12:02 Post right femoral artery:stable 15:12:04 Post Procedure Pulses reassessed and unchanged 15:13:13 SEE ANESTHESIA NOTE FOR POST PROCEDURE ANESTHESIA 15:14:01 Report given to Recovery Room. 15:14:04 Patient transfered to Recovery Room with Stretcher. Intervention Summary Intervention Notes Time ActionType Lesion and Equipment Used Action# Pressure Duration Attributes 14:28:03 Inflate Undefined1 CHOCOLATE 3.0 x 80 1 14 01:10 balloon x 150 balloon ([id number]) 14:40:48 Inflate Undefined1 CHOCOLATE 3.5 x 80 2 11 01:04 balloon x 135 balloon ([id number]) 14:42:37 Reinflate Undefined1 CHOCOLATE 3.5 x 80 3 12 01:03 balloon x 135 balloon ([id number]) Device Usage Item Name Manufacture Quantity Catalog Number Hospital Part Curr ent Minimal Lot# / Charge Number Stock Stock Serial# Code ACIST Syringe Acist Medical 1 26409 556552 121394 1647 98 20 (60393) Systems Inc ACIST Hand Control Acist Medical 1 50752 376460 271052 7740 29 5 (30933) Systems Inc ACIST Manifold Acist Medical 1 56603 841517 143336 6609 45 5 (04892) Systems Inc Bag Decanter Microtek 1 2001S 068763 97334 9837 95 5 () Medical Inc. Sterile Cardinal 1 [id number] 397714 6643 40 5 Angiographic Pack Health Tegaderm 4 x 4 3M 1 1626W 546082 182492 5315 64 5 (1626W) TUBING Contrast [facility] Medical 1 [id number] 690617 214496 0863 87 5 Injection High Pressure (OPD992G) SHEATH 5FR Terumo 1 OWG037 805555 536312 2812 94 5 Irving (PWO585) DOC .035 wire [employer] 1 V90950 554833 7947 17 5 (R70640) Micropuncture VSI VSI VASCULAR 1 7266V 909557 7827 22 5 4FR kit SOLUTIONS DE LA TORRE 260 wire Cook Medical 1 U69253 335919 08486 9993 90 5 (T50549) GLIDE WIRE ANGLE Terumo 1 DD4108 959955 148888 7979 80 5 180cm (DI6362) Angiodynamics Angiodynamics 1 58985045 915612 700773 5123 74 5 Omniflush 5Fr 65cm (65130313) GLIDE CATHETER 5FR Terumo 1 CG507 482288 9514 76 5 ANGLED 65cm (CG507) AMPLATZ Super Converse 1 [id number] 893252 891455 1512 16 5 [id number] Stiff 75cm wire Scientific ([id number]) COOK SHEATH 6FR [employer] Medical 1 W73888 065634 31327 9999 79 1 [id number] RAABE 70CM (C19916) INFLATOR [facility] 1 YI4273 400604 321298 0440 74 5 BasixTOUCH (RO4412) CXI SUPPORT .035 [employer] 1 R83036 389156 691754 4848 49 5 [id number] 135 CM STR catheter (P12850) CHOICE PT Extra Converse 1 [id number] 785063 096139 6564 61 5 [id number] Support J 300cm Scientific guide wire (8073825V0) CHOCOLATE 3.0 x 80 Medtronic 1 [id number] 440218 945866 8208 97 5 [id number] x 150 balloon OTW [id number] ([id number]) [id number] CHOCOLATE 3.5 x 80 Medtronic 1 [id number] 873173 545303 0161 98 5 x 135 balloon O ([id number]) TW SHEATH 6FR Terumo 1 ECN603 157678 073144 6686 13 40 Irving (WQU008) ANGIOSEAL-VIP PLUS [facility] Hank 1 591679 424991 144389 6191 19 5 [id number] 6 FR Signature Audit [place] Stage Time Signature Unsigned Intra-Procedure 04/16/2020 Paco 3:14:25 PM [place] RT (R) (CV) [facility] [address] [facility], [facility]
[~2020-04-16 11:40] MED LIST changes: -BETAPACE 80 MG80 MG PO; -BISOPROLOL FUMAR5 MG PO
[2020-04-16 12:05] LABS: ANION GAP 10.1 mmol/L (8-16); CALCIUM 9.5 mg/dL (8.5-10.1); CARBON DIOXIDE 29.1 mmol/L (21.0-32.0); CREATININE - SERUM 1.4 mg/dL (0.6-1.3); POTASSIUM - SERUM 4.2 mmol/L (3.5-5.1)
[2020-04-16 12:15] LABS: INR 0.99 (0.85-1.17); PROTIME 13.1 SECONDS (11.6-15.0)
[2020-04-16 12:16] LABS: APTT 34.6 SECONDS (22.8-39.4)
[2020-04-16 12:27] LABS: BASOPHILS 0.8 % (0-2); EOSINOPHILS 1.9 % (0-7); HEMATOCRIT 47.5 % (42.0-54.0); IMMATURE GRANULOCYTES 0.3 % (0-5); LYMPHOCYTES 15.6 % (15-50); MCH 33.3 pg (26.0-34.0); MCHC 33.7 g/dL (31.0-37.0); MCV 98.8 fL (80.0-100.0); MEAN PLATELET VOLUME 10.9 fL (7.4-10.4); MONOCYTES 7.9 % (2-11); NEUTROPHILS 73.5 % (40-80); PLATELET COUNT 220 10x3/uL (130-400); RBC 4.81 10x6/uL (4.20-6.10); RDW 13.5 % (11.5-14.5); WBC 9.2 10x3/uL (4.8-10.8)
[2020-04-16] MEDS ORDERED: BISOPROLOL FUMAR5 MG PO (12:33)
[2020-04-16] MEDS ORDERED: BETAPACE 80 MG80 MG PO (12:33)
[2020-04-16 12:35] VITALS: Ht 172.7 cm; Wt 104.5 kg
--- NOTE | 2020-04-16 18:30 | NUR ---
IV D/C'D WITH CANNULA INTACT, PRESSURE HELD AND DRSG APPLIED. DISCHARGE INSTRUCTIONS GIVEN TO BOTH PT AND AND THEY VERBALIZED AN UNDERSTANDING, PT IS ALERT AND AMBULATES TO BR WITH MINIMAL ASSISTANCE. DOES C/O OF RESTLESS LEGS. INSTRUCTED TO TAKE MED SOON ARRIVING HOME. GROIN IS SOFT AND W/O S/S OF HEMATOMA. DISCHARGED WITHOUT C/O
== END 2020-04-16 18:30 | disposition home or self-care (01) ==
LOC: D.SP 11:40 → EDSTATUS 13:00 → D.RAD 13:00 → D.SP 13:00
PROVIDERS: ATTEND General Practice
DX: I70.202 Unspecified atherosclerosis of native arteries of extremities, left leg (principal)

== ENCOUNTER → 2020-05-04 09:09 | Outpatient (CLI) | payer MEDICARE, OTHER ==
[2020-04-16 12:35] VITALS: BMI 35.0
[~2020-05-04 09:09] MED LIST changes: +BETAPACE 80 MG80 MG PO; +BISOPROLOL FUMAR5 MG PO
== END | disposition home or self-care (01) ==
LOC: D.US 05-03 10:00
PROVIDERS: ATTEND Internal Medicine Cardiovascular Disease
DX: I65.23 Occlusion and stenosis of bilateral carotid arteries (principal)

== ENCOUNTER → 2020-10-11 11:47 | Outpatient (CLI) | payer MEDICARE, OTHER ==
[2020-04-16 12:35] VITALS: BMI 35.0
== END | disposition home or self-care (01) ==
LOC: D.CT 10-08 09:30
PROVIDERS: ATTEND Thoracic Surgery (Cardiothoracic Vascular Surgery)
DX: I72.3 Aneurysm of iliac artery (principal)

== ENCOUNTER → 2020-10-12 10:10 | Outpatient (CLI) | payer MEDICARE, OTHER ==
[2020-04-16 12:35] VITALS: BMI 35.0
--- NOTE | ~2020-10-12 | EC ---
PATIENT:JAEL MOORE DATE OF SERVICE: 10/12/20 SEX: M MEDICAL RECORD: [id number] DATE OF : 45 LOCATION:D.[facility]ER[facility] AGE OF PATIENT: 75 ADMISSION DATE: 10/12/20 REFERRING PHYSICIAN: INTERPRETING PHYSICIAN: ANNA MCPHERSON MD ECHOCARDIOGRAM REPORT ECHO CHARGES 4 ECHO COMPLETE Date: 10/12/20 CLINICAL DIAGNOSIS: HX OF HTN/CAD/AFIB ASSESS EF AND VALVES ECHOCARDIOGRAPHIC MEASUREMENTS (adult normal given) AC root (d.<3.7cm) 3.4 cm LV Septum d (<1.2 cm> 1.9 cm Valve Excursion 1.4 cm LV Septum (systole) 2.0 cm Left Atria (s.<4.0cm> 3.6 cm LVPW d(<1.2cm) 2.1 cm RV (d.<2.3cm) 4.1 cm LVPW (sytole) 2.4 cm LV diastole(<5.6CM) 5.7 cm MV E-F(>70mm/sec) cm LV systole 4.4 cm LVOT Diameter 2.0 cm MV exc.(>10mm) 1.7 cm Est.ejection fraction (50-75%) % DOPPLER: LVIT cm/sec A 79.0 cm/sec E 49.0 cm/sec LA cm/sec RVSP 17 mmHg LVOT 91 cm/sec AOP1/2T m/s Asc. Ao 138 cm/sec RVOT 75 cm/sec RA cm/sec PA 101 cm/sec AV Gradient Peak 7.58 mmHg AV Mean 4.17 mmHg AV Area 2.2 cm MV Gradient Peak 3.51 mmHg MV Mean 1.46 mmHg MV Area cm COMMENTS: Blood Coordinator: 2 RAFFI ELISE Clothes Model: 3 Dr. Hirsch TAPE# PACS Pericardial Effusion N DATE OF SERVICE: Adequate 2D, color flow imaging, spectral Doppler, and M-Mode. FINDINGS: LVH is present. LV internal dimensions normal. Wall motion is normal. EF is 55%. Aortic valve is sclerotic. No evidence of stenosis by Doppler interrogation. Left atrium is normal at 3.6 cm. Mitral valve shows no prolapse. Trace MR. Right-sided chambers are grossly normal. Mild TR. TRANSINT:[id number] Voice Confirmation ID: [id number] DOCUMENT ID: [id number] ECHOCARDIOGRAM REPORT [id number] JAEL MOORE GREGORY A MD CC: [id number] DICTATION DATE: 10/13/20 112 BOTTLE SORTER: 10/13/202107 DEP CLI 10/12/20 [place] [id number] [place] [id number]
== END | disposition home or self-care (01) ==
LOC: D.HCCECHO 10-04 09:00
PROVIDERS: ATTEND Internal Medicine Interventional Cardiology
DX: I10 Essential (primary) hypertension (principal)

== ENCOUNTER → 2021-01-14 09:11 | Outpatient (CLI) | payer MEDICARE, OTHER ==
[2020-04-16 12:35] VITALS: BMI 35.0
== END | disposition home or self-care (01) ==
LOC: D.US 09:11
PROVIDERS: ATTEND Family Medicine
DX: K74.69 Other cirrhosis of liver (principal)

== ENCOUNTER 2021-01-15 00:13 | Inpatient (IN) | payer MEDICARE, OTHER ==
[2021-01-15] VITALS (8 sets, daily range): BP systolic 120–158; BP diastolic 72–104; BMI 33.2
[~2021-01-15] VITALS: Ht 172.7 cm; Wt 98.9 kg
--- NOTE | 2021-01-15 00:24 | NUR ---
trauma band [id number]
[2021-01-15 00:50] LABS: BASOPHILS 0.9 % (0-2); EOSINOPHILS 1.6 % (0-7); HEMATOCRIT 46.6 % (42.0-54.0); HEMOGLOBIN 15.8 g/dL (13.5-17.5); LYMPHOCYTES 19.7 % (15-50); MCH 31.6 pg (26.0-34.0); MCHC 33.9 g/dL (31.0-37.0); MEAN PLATELET VOLUME 8.6 fL (7.4-10.4); MONOCYTES 7.4 % (2-11); NEUTROPHILS 70.4 % (40-80); RBC 5.01 10x6/uL (4.20-6.10); RDW 13.6 % (11.5-14.5); WBC 11.6 10x3/uL (4.8-10.8)
[2021-01-15 00:59] LABS: PLATELET COUNT 295 10x3/uL (130-400)
[2021-01-15 01:07] LABS: INR 1.08 (0.85-1.17); PROTIME 12.9 SECONDS (11.6-15.0)
[2021-01-15 01:12] LABS: ANION GAP 17.6 mmol/L (8-16); CALCIUM 9.3 mg/dL (8.5-10.1); CARBON DIOXIDE 24.6 mmol/L (21.0-32.0); CREATININE - SERUM 1.4 mg/dL (0.6-1.3); POTASSIUM - SERUM 3.2 mmol/L (3.5-5.1)
[2021-01-15 01:27] LABS: BILIRUBIN - TOTAL 0.32 mg/dL (0.2-1.3); PROTEIN - SERUM 8.3 g/dL (6.4-8.2)
[2021-01-15 10:54] LABS: BILIRUBIN NEGATIVE (NEGATIVE); KETONE NEGATIVE mg/dL (< 1+); NITRITE NEGATIVE (NEGATIVE); UROBILINOGEN NORMAL mg/dL (< 2); WHITE CELLS - URINE 2 HPF (0-1)
--- NOTE | 2021-01-15 12:50 | NUR ---
report received from GABRIELA George and care transferred to GABRIELA Eller
--- NOTE | 2021-01-15 13:45 | NUR ---
patient road tested by nurse per hcp orders. patient unable to stand up at this time. patient in increasing pain in sitting position.
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
--- NOTE | 2021-01-15 15:57 | NUR ---
TO ROOM, TRANSFERRED TO BED. ORIENTED TO ROOM AND UNIT. DENIES ANY NEEDS AT THIS TIME. BED IN LOWEST POSITION, BED RAILS X2, CALL LIGHT WITHIN REACH. WILL CONTINUE POC.
--- NOTE | 2021-01-15 16:55 | NUR ---
RCVED PT FROM ER VIA HOSPITAL STAFF AND STRETCHER. ALERT AND ORIENTED WITH NO S/S OF DISTRESS OTHER THAN BACK PAIN AND GENERALIZED WEAKNESS. V/S STABLE. PROVIDED PT WITH URINAL AND CALL LIGHT, BED LOW. WILL CONT TO MONITOR.
--- NOTE | 2021-01-15 19:00 | NUR ---
BEDSIDE REPORT RECEIVED AND CARE OF PT ASSUMED. PT LYING IN SUPINE POSITION WITH EYES CLOSED. IV TO RIGHT AC PATENT WITH NS INFUSING AT 75 ML/HR. TELEMETRY IN PLACE PER ORDER. WILL MONITOR FOR NEEDS.
--- NOTE | 2021-01-15 20:49 | NUR ---
HS MEDICATIONS GIVEN TO INCLUDE MORPHINE IVP FOR C/O ACHING / STABBING PAIN IN BACK AND NECK AT LEVEL 8/10. WILL MONITOR FOR EFFECTIVENESS.
--- NOTE | 2021-01-15 21:30 | NUR ---
AT BEDSIDE WITH QUESTIONS. REVIEWED MD'S FINDINGS AND PLAN OF CARE WITH HER.
[2021-01-16] VITALS: BP 110/77
--- NOTE | 2021-01-16 03:03 | NUR ---
GAVE MORPHINE 4 MG IVP PER PRN ORDER, PER REQUEST FOR PAIN AT LEVEL 8/10 IN BACK AND NECK.
[2021-01-16 05:45] LABS: CALCIUM 9.2 mg/dL (8.5-10.1); CARBON DIOXIDE 28.2 mmol/L (21.0-32.0); CREATININE - SERUM 1.1 mg/dL (0.6-1.3); POTASSIUM - SERUM 4.2 mmol/L (3.5-5.1)
[2021-01-16 06:07] LABS: BASOPHILS 0.5 % (0-2); EOSINOPHILS 2.3 % (0-7); HEMATOCRIT 43.7 % (42.0-54.0); HEMOGLOBIN 14.5 g/dL (13.5-17.5); IMMATURE GRANULOCYTES 0.2 % (0-5); LYMPHOCYTE ABS# 1.12 10x3/uL (1.32-3.57); LYMPHOCYTES 9.8 % (15-50); MCH 31.9 pg (26.0-34.0); MCHC 33.2 g/dL (31.0-37.0); MEAN PLATELET VOLUME 10.6 fL (7.4-10.4); NEUTROPHIL ABS# 8.85 10x3/uL (1.78-5.38); NEUTROPHILS 77.2 % (40-80); PLATELET COUNT 265 10x3/uL (130-400); RBC 4.55 10x6/uL (4.20-6.10); RDW 14.2 % (11.5-14.5); WBC 11.5 10x3/uL (4.8-10.8)
[2021-01-16 06:33] VITALS: BP 125/73
[2021-01-16 09:05] VITALS: BP 131/74
[2021-01-16 12:43] VITALS: BP 143/83
--- NOTE | 2021-01-16 13:25 | NUR ---
PRN MORPHINE FOR BACK PAIN. TOLERATED WELL. FAMILY AT BEDSIDE. DENIES FURTHER NEEDS AT THIS TIME. WILL CONTINUE POC.
--- NOTE | 2021-01-16 15:13 | NUR ---
ADMINISTERED MEDICATION, NO DIFFICULTIES. RESTING IN BED, COMPLAINS OF BACK PAIN. WILL READJUST IN BED. DENIES FURTHER NEEDS. WILL CONTINUE POC.
--- NOTE | 2021-01-16 15:42 | NUR ---
I have reviewed this patient and I concur with the Shift Assessment completed by the Licensed Practical Nurse today this shift.
--- NOTE | 2021-01-16 16:36 | NUR ---
COMPLAINED OF IT "BEING A LITTLE HARD TO BREATHE", STATES THIS IS NOT A NEW PROBLEM AND IS RELATED TO HIS PREVIOUS DIAGNOSIS OF AFIB. STATES "I HAVE TO SIT UP AT HOME TO HELP IT BUT I CAN'T RIGHT NOW BECAUSE OF MY BACK." FEELS THE SUPPLEMENTAL O2 WILL BE HELPFUL, DENIES FURTHER NEEDS AT THIS TIME. WILL CONTINUE POC
[2021-01-16 18:02] VITALS: BP 120/71
--- NOTE | 2021-01-16 18:05 | NUR ---
PRN MORPHINE FOR PAIN, TOLERATED WELL. FAMILY AT BEDSIDE. DENIES FURTHER NEEDS AT THIS TIME. WILL CONTINUE POC.
--- NOTE | 2021-01-16 18:17 | MORECARE ---
CASE MANAGEMENT DISCHARGE SUMMARY PATIENT: JAEL ROSADO UNIT: [id number] ADM DATE: 01/15/21 AGE: 75 : 45 SEX: M ROOM/BED: D.2222 AUTHOR: JOSE ARMANDO,DOC PHYSICIAN: REFERRING PHYSICIAN: KILEY GARCIA MD DATE OF SERVICE: 01/16/21 Case Management Discharge Planning Summary COMMENTS ENTERED DATE: 01/16/21 18:15 CT COMMENT TYPE: Discharge Planning REVIEWER: Marino Arenas Patient lives independently with his spouse, Jacinda Rosado, . Patient did not want to make a choice of DME company. CM explained that CM are not DME representatives and cannot give him a detailed explanation of lumbar support items or which companies carry the Lumbar corset that has been ordered. Patient would like to review and research DME companies before making a decision on which company to supply the [place] Quick Draw Lumbar Corset. CM left a list of DME companies with the patient. The patient further stated that he would like to speak with a physician further about the lumbar support device before making a decision. CM will continue to follow and will assist as needed with dc plans/needs. DCP REVIEW SUMMARY ANTICIPATED D/C DATE: EXPECTED LOS : CASE STATUS: DCP Initiated INITIAL REVIEW: 01/15/2021 INITIAL REVIEWER: Marino Arenas FINAL DISCHARGE DISPOSITION: : FINAL REVIEWER: FINAL REVIEW DATE: DCP Focus Questions & Answers DCP Evaluation QUESTION: ANSWER Family / Caregiver's ability to cope with chronic illness: : a. Adequate (ability to meet patient's medical needs, ensures patient attends medical appts.) Patient gives permission to discuss discharge plans with: (name, relationship and number) : his spouse, Jacinda Rosado, Patient's ability to cope with chronic illness : d. No chronic illness Patient's current cognitive status: : *Oriented to person, place, situation, time and present Patient and/or caregiver agree upon recommended discharge plan? : Yes Physical Status: : Independent with ADL's Family / Caregiver's ability to cope with chronic illness: : a. Adequate (ability to meet patient's medical needs, ensures patient attends medical appts.) Functional screen assessment: : Basic needs can adequately be met by self Does the patient have the ability to pay for or attain post discharge needs / services? : Yes Living Arrangements: : Home with Spouse/Significant Other Is there a likelihood that the patient will require additional services to return to the preadmission environment? : Yes Baseline cognitive status: : *Oriented to person, place, situation, time and present Patient with capacity for self-care or can be cared for in same environment as prior to hospitalization? : Yes Other Equipment comments: : ASPEN QUICK DRAW LUMBAR CORSET Physical environment modification needed / anticipated for discharge: : No Medication Management: : Patient states can afford medications Medication Management: : Patient states can read and understand medication labels Pharmacy name(s): : [facility] Does Patient have transportation to get home and to follow-up medical appointments when discharged from the hospital? : Yes Would patient like to participate in any Care Coordination programs (if applicable): : Not applicable Does the patient have electricity at home? : Yes Does the patient have running water in their house? : Yes Equipment in use: : Walker - Rolling Mental health screen: : No mental health history DCP Re-evaluation QUESTION: ANSWER Would patient like to participate in any Care Coordination programs (if applicable): : Not applicable PATIENT: JAEL ROSADO ENCOUNTER: [id number] MEDICAL RECORD#: [id number] ADMISSION DATE: 01/15/2021 DISCHARGE DATE: ATTENDING MD: KILEY AMARAL : AGE: 75 MARITAL STATUS: M DC PLAN ID: [id number] FACILITY: [facility] PRINTED ON: 01/16/21 18:17 CT All edits/amendments must be made on the electronic document DICTATION DATE: 01/16/211816 HOSPITAL SALES REPRESENTATIVE: BARRY 01/16/211816 RPT#: [id number] DC DATE: STATUS: ADM IN [facility] [address] [place] [address] END OF REPORT
[2021-01-16 18:20] LABS: BILIRUBIN NEGATIVE (NEGATIVE); KETONE NEGATIVE mg/dL (< 1+); NITRITE NEGATIVE (NEGATIVE); PH 5.5 (5.0-8.0); UROBILINOGEN NORMAL mg/dL (< 2); WHITE CELLS - URINE <1 HPF (0-1)
--- NOTE | 2021-01-16 19:00 | NUR ---
BEDSIDE REPORT RECEIVED AND CARE OF PT ASSUMED. PT LYING IN HIGH PALOMARES'S POSITION WITH EYES CLOSED AND EASY RESPIRATIONS. IV TO RIGHT AC SALINE LOCKED. WILL MONITOR FOR NEEDS.
[2021-01-16 20:00] VITALS: BP 154/80
--- NOTE | 2021-01-16 20:30 | NUR ---
HEARD PT YELLING OUT FROM ROOM...FOUND HIM UP LEANING OVER HIS SINK USING THE URINAL....SCREAMING THAT HE IS IN PAIN. BED ALARM PLACED ON BED. AFTER 20 MINUTES FINALLY GOT PT BACK TO BED. ALARM IN USE PT NOT KEEPING HIMSELF SAFE BY GETTING OUT OF BED UNASSISTED. SIDE RAILS UP X2 FOR SAFETY.
--- NOTE | 2021-01-16 20:39 | NUR ---
HS MEDICATIONS GIVEN TO INCLUDE MORPHINE 4 MG IVP FOR PAIN AT LEVEL 10/10. WILL MONITOR FOR EFFECTIVENESS. RE-POSITIONED PT IN BED WITH PILLOWS FOR COMFORT.
[2021-01-17] VITALS: BP 116/80
[2021-01-17 04:00] VITALS: BP 123/76
--- NOTE | 2021-01-17 09:00 | NUR ---
ASSESSMENT PER FLOW SHEET. PATIENT IS WITHOUT DISTRESS.DENIES NEEDS.CALL LIGHT IN REACH
[2021-01-17 09:09] VITALS: BP 131/73
--- NOTE | 2021-01-17 12:11 | NUR ---
THIRD ATTEMPT TO REACH CENTRAL SUPPLY RE.. BRACE FOR PATIENT. NO ANSWER
--- NOTE | 2021-01-17 13:00 | MORECARE ---
CASE MANAGEMENT DISCHARGE SUMMARY PATIENT: JAEL ROSADO UNIT: [id number] ADM DATE: 01/15/21 AGE: 75 : 45 SEX: M ROOM/BED: D.2222 AUTHOR: JOSE ARMANDO,DOC PHYSICIAN: REFERRING PHYSICIAN: KILEY GARCIA MD DATE OF SERVICE: 01/17/21 Case Management Discharge Planning Summary COMMENTS ENTERED DATE: 01/17/21 12:48 CT COMMENT TYPE: Discharge Planning REVIEWER: Sameera LOZANO [place] [employer] [place]. ENTERED DATE: 01/16/21 18:15 CT COMMENT TYPE: Discharge Planning REVIEWER: Marino Arenas Patient lives independently with his spouse, Jacinda Rosado, . Patient did not want to make a choice of DME company. CM explained that CM are not DME representatives and cannot give him a detailed explanation of lumbar support items or which companies carry the Lumbar corset that has been ordered. Patient would like to review and research DME companies before making a decision on which company to supply the [place] Quick Draw Lumbar Corset. CM left a list of DME companies with the patient. The patient further stated that he would like to speak with a physician further about the lumbar support device before making a decision. CM will continue to follow and will assist as needed with dc plans/needs. DCP REVIEW SUMMARY ANTICIPATED D/C DATE: EXPECTED LOS : CASE STATUS: DCP Initiated INITIAL REVIEW: 01/15/2021 INITIAL REVIEWER: Marino Arenas FINAL DISCHARGE DISPOSITION: : FINAL REVIEWER: FINAL REVIEW DATE: DCP Focus Questions & Answers DCP Evaluation QUESTION: ANSWER Patient and/or caregiver agree upon recommended discharge plan? : Yes Family / Caregiver's ability to cope with chronic illness: : a. Adequate (ability to meet patient's medical needs, ensures patient attends medical appts.) Patient's current cognitive status: : *Oriented to person, place, situation, time and present Patient's ability to cope with chronic illness : d. No chronic illness Patient gives permission to discuss discharge plans with: (name, relationship and number) : his spouse, Jacinda Rosado, Does the patient have the ability to pay for or attain post discharge needs / services? : Yes Functional screen assessment: : Basic needs can adequately be met by self Family / Caregiver's ability to cope with chronic illness: : a. Adequate (ability to meet patient's medical needs, ensures patient attends medical appts.) Physical Status: : Independent with ADL's Is there a likelihood that the patient will require additional services to return to the preadmission environment? : Yes Living Arrangements: : Home with Spouse/Significant Other Other Equipment comments: : ASPEN QUICK DRAW LUMBAR CORSET Patient with capacity for self-care or can be cared for in same environment as prior to hospitalization? : Yes Baseline cognitive status: : *Oriented to person, place, situation, time and present Physical environment modification needed / anticipated for discharge: : No Medication Management: : Patient states can read and understand medication labels Medication Management: : Patient states can afford medications Pharmacy name(s): : [facility] Does Patient have transportation to get home and to follow-up medical appointments when discharged from the hospital? : Yes Would patient like to participate in any Care Coordination programs (if applicable): : Not applicable Does the patient have electricity at home? : Yes Does the patient have running water in their house? : Yes Equipment in use: : Walker - Rolling Mental health screen: : No mental health history DCP Re-evaluation QUESTION: ANSWER Would patient like to participate in any Care Coordination programs (if applicable): : Not applicable PATIENT: JAEL ROSADO ENCOUNTER: [id number] MEDICAL RECORD#: [id number] ADMISSION DATE: 01/15/2021 DISCHARGE DATE: ATTENDING MD: KILEY AMARAL : AGE: 75 MARITAL STATUS: M DC PLAN ID: [id number] FACILITY: [facility] PRINTED ON: 01/17/21 13:00 CT All edits/amendments must be made on the electronic document DICTATION DATE: 01/17/21 1300 TRAFFIC COORDINATOR: BARRY 01/17/21 1300 RPT#: [id number] DC DATE: STATUS: ADM IN [facility] [address] [place] [address] END OF REPORT
[2021-01-17 13:30] VITALS: BP 133/73
--- NOTE | 2021-01-17 13:59 | MORECARE ---
CASE MANAGEMENT DISCHARGE SUMMARY PATIENT: JAEL ROSADO UNIT: [id number] ADM DATE: 01/15/21 AGE: 75 : 45 SEX: M ROOM/BED: D.2222 AUTHOR: JOSE ARMANDO,DOC PHYSICIAN: REFERRING PHYSICIAN: KILEY GARCIA MD DATE OF SERVICE: 01/17/21 Case Management Discharge Planning Summary COMMENTS ENTERED DATE: 01/17/21 12:48 CT COMMENT TYPE: Discharge Planning REVIEWER: Sameera LOZANO FAXED TO [employer] [facility] [place] TODAY. ENTERED DATE: 01/16/21 18:15 CT COMMENT TYPE: Discharge Planning REVIEWER: Marino Arenas Patient lives independently with his spouse, Jacinda Rosado, . Patient did not want to make a choice of DME company. CM explained that CM are not DME representatives and cannot give him a detailed explanation of lumbar support items or which companies carry the Lumbar corset that has been ordered. Patient would like to review and research DME companies before making a decision on which company to supply the [place] Quick Draw Lumbar Corset. CM left a list of DME companies with the patient. The patient further stated that he would like to speak with a physician further about the lumbar support device before making a decision. CM will continue to follow and will assist as needed with dc plans/needs. DCP REVIEW SUMMARY ANTICIPATED D/C DATE: EXPECTED LOS : CASE STATUS: DCP Initiated INITIAL REVIEW: 01/15/2021 INITIAL REVIEWER: Marino Arenas FINAL DISCHARGE DISPOSITION: : FINAL REVIEWER: FINAL REVIEW DATE: DCP Focus Questions & Answers DCP Evaluation QUESTION: ANSWER Patient and/or caregiver agree upon recommended discharge plan? : Yes Family / Caregiver's ability to cope with chronic illness: : a. Adequate (ability to meet patient's medical needs, ensures patient attends medical appts.) Patient's current cognitive status: : *Oriented to person, place, situation, time and present Patient's ability to cope with chronic illness : d. No chronic illness Patient gives permission to discuss discharge plans with: (name, relationship and number) : his spouse, Jacinda Rosado, Does the patient have the ability to pay for or attain post discharge needs / services? : Yes Functional screen assessment: : Basic needs can adequately be met by self Family / Caregiver's ability to cope with chronic illness: : a. Adequate (ability to meet patient's medical needs, ensures patient attends medical appts.) Physical Status: : Independent with ADL's Is there a likelihood that the patient will require additional services to return to the preadmission environment? : Yes Living Arrangements: : Home with Spouse/Significant Other Other Equipment comments: : ASPEN QUICK DRAW LUMBAR CORSET Patient with capacity for self-care or can be cared for in same environment as prior to hospitalization? : Yes Baseline cognitive status: : *Oriented to person, place, situation, time and present Physical environment modification needed / anticipated for discharge: : No Medication Management: : Patient states can read and understand medication labels Medication Management: : Patient states can afford medications Pharmacy name(s): : [facility] Does Patient have transportation to get home and to follow-up medical appointments when discharged from the hospital? : Yes Would patient like to participate in any Care Coordination programs (if applicable): : Not applicable Does the patient have electricity at home? : Yes Does the patient have running water in their house? : Yes Equipment in use: : Walker - Rolling Mental health screen: : No mental health history DCP Re-evaluation QUESTION: ANSWER Would patient like to participate in any Care Coordination programs (if applicable): : Not applicable PATIENT: JAEL ROSADO ENCOUNTER: [id number] MEDICAL RECORD#: [id number] ADMISSION DATE: 01/15/2021 DISCHARGE DATE: ATTENDING MD: KILEY AMARAL : AGE: 75 MARITAL STATUS: M DC PLAN ID: [id number] FACILITY: [facility] PRINTED ON: 01/17/21 13:59 CT All edits/amendments must be made on the electronic document DICTATION DATE: 01/17/21 135 APPLE PEELER OPERATOR: BARRY 01/17/21 135 RPT#: [id number] DC DATE: STATUS: ADM IN [facility] [address] [place] [address] END OF REPORT
[2021-01-17 17:46] VITALS: BP 191/86
--- NOTE | 2021-01-17 19:00 | NUR ---
BEDSIDE REPORT RECEIVED AND CARE OF PT ASSUMED. PT LYING IN LOW PALOMARES'S POSITION VISITING WITH SPOUSE. IV TO RIGHT AC SALINE LOCKED. TELEMETRY IN PLACE PER ORDER. WILL MONITOR FOR NEEDS.
[2021-01-17 20:00] VITALS: BP 154/71
--- NOTE | 2021-01-17 20:07 | NUR ---
HS MEDICATIONS GIVEN TO INCLUDE MORPHINE 4 MG IVP PER REQUEST FOR PAIN AT LEVEL 7/10 IN BACK, PER PRN ORDER. WILL MONITOR FOR EFFECTIVENESS.
[2021-01-18] VITALS: BP 158/84
[2021-01-18 04:00] VITALS: BP 126/74
[2021-01-18 06:00] LABS: BASOPHILS 0.8 % (0-2); HEMATOCRIT 43.1 % (42.0-54.0); HEMOGLOBIN 14.7 g/dL (13.5-17.5); LYMPHOCYTES 7.4 % (15-50); MCH 31.8 pg (26.0-34.0); MCHC 34.2 g/dL (31.0-37.0); MCV 92.9 fL (80.0-100.0); MEAN PLATELET VOLUME 8.5 fL (7.4-10.4); MONOCYTES 9.9 % (2-11); NEUTROPHILS 80.9 % (40-80); PLATELET COUNT 246 10x3/uL (130-400); RBC 4.64 10x6/uL (4.20-6.10); RDW 13.7 % (11.5-14.5); WBC 15.1 10x3/uL (4.8-10.8)
[2021-01-18 06:42] LABS: BILIRUBIN - TOTAL 0.97 mg/dL (0.2-1.3); CALCIUM 10.2 mg/dL (8.5-10.1); CARBON DIOXIDE 31.2 mmol/L (21.0-32.0); CREATININE - SERUM 1.4 mg/dL (0.6-1.3); POTASSIUM - SERUM 4.2 mmol/L (3.5-5.1); PROTEIN - SERUM 7.8 g/dL (6.4-8.2)
--- NOTE | 2021-01-18 09:00 | NUR ---
ASSESSSMENT PERR FLOW SHEET. PATIENT IS WITHOUT DISTRESS.MONITOR FOR NEEDS.CALL LIGHT IN REACH.FALL PREENTION WITH BED ALARM.
[2021-01-18 09:07] VITALS: BP 138/83
[2021-01-18 12:42] VITALS: BP 126/76
[2021-01-18 13:44] VITALS: BMI 33.1
[2021-01-18 17:08] VITALS: BP 130/81
[2021-01-18 20:00] VITALS: BP 124/69
--- NOTE | 2021-01-18 20:15 | NUR ---
ASSESSMENT PER FLOW SHEET, VS OBTAINED PER DIRECTOR FACILITIES MAINTENANCE, SALINE LOCK TO RIGHT AC INTACT WITH NO REDNESS OR EDEMA, EMPTIED 100MLS OF ORANGE COLORED URINE FROM URINAL, FALL PRECAUTIONS IN PLACE
[2021-01-19] VITALS (7 sets, daily range): BP systolic 109–152; BP diastolic 68–97; Ht 172.7 cm; Wt 98.9 kg
--- NOTE | 2021-01-19 02:29 | NUR ---
PT ROAD ROLLER OPERATOR HOT MIX LIGHT, C/O PAIN, FLUSHED SALINE LOCK, ADM MORPHINE, FLUSHED SALINE LOCK, PT DENIES FURTHER NEEDS, EMPTIED 100 MLS OF ORANGE COLORED URINE FROM URINAL
[2021-01-19 06:19] LABS: BASOPHILS 0.7 % (0-2); EOSINOPHILS 1.6 % (0-7); HEMATOCRIT 43.3 % (42.0-54.0); LYMPHOCYTES 8.9 % (15-50); MCHC 34.6 g/dL (31.0-37.0); MCV 92.6 fL (80.0-100.0); MEAN PLATELET VOLUME 8.4 fL (7.4-10.4); MONOCYTES 9.9 % (2-11); NEUTROPHILS 78.9 % (40-80); PLATELET COUNT 260 10x3/uL (130-400); RBC 4.68 10x6/uL (4.20-6.10); RDW 13.5 % (11.5-14.5); WBC 13.2 10x3/uL (4.8-10.8)
[2021-01-19 06:35] LABS: ANION GAP 14.5 mmol/L (8-16); CALCIUM 10.5 mg/dL (8.5-10.1); CARBON DIOXIDE 27.7 mmol/L (21.0-32.0); CREATININE - SERUM 1.3 mg/dL (0.6-1.3); POTASSIUM - SERUM 4.2 mmol/L (3.5-5.1)
--- NOTE | 2021-01-19 11:03 | NUR ---
PT BEING AGGRESSIVE WITH PHYSICAL THERAPY AND REFUSING TO PARTICIPATE, PHYSICAL THERAPY WAS ABLE TO GET PT TO SIT UP ON SIDE OF BED BUT THEN PT REFUSED TO STAND OR LAY BACK DOWN, CUSSING AT PHYSICAL THERAPY, REFUSING TO GIVE THEIR WALKER BACK, AND STATING THAT HE WOULD ONLY WORK WITH THEM IF HIS AND DAUGHTER WERE INVOLVED, FINALLY GOT PT BACK INTO BED AND COVERED UP, CALL LIGHT WITHIN REACH
--- NOTE | 2021-01-19 13:16 | MORECARE ---
CASE MANAGEMENT DISCHARGE SUMMARY PATIENT: JAEL ROSADO UNIT: [id number] ADM DATE: 01/15/21 AGE: 75 : 45 SEX: M ROOM/BED: D.2222 AUTHOR: JOSE ARMANDO,DOC PHYSICIAN: REFERRING PHYSICIAN: KILEY GARCIA MD DATE OF SERVICE: 01/19/21 Case Management Discharge Planning Summary COMMENTS ENTERED DATE: 01/17/21 12:48 CT COMMENT TYPE: Discharge Planning REVIEWER: Sameera LOZANO FAXED TO [employer] [facility] [place] TODAY. ENTERED DATE: 01/16/21 18:15 CT COMMENT TYPE: Discharge Planning REVIEWER: Marino Arenas Patient lives independently with his spouse, Jacinda Rosado, . Patient did not want to make a choice of DME company. CM explained that CM are not DME representatives and cannot give him a detailed explanation of lumbar support items or which companies carry the Lumbar corset that has been ordered. Patient would like to review and research DME companies before making a decision on which company to supply the [place] Quick Draw Lumbar Corset. CM left a list of DME companies with the patient. The patient further stated that he would like to speak with a physician further about the lumbar support device before making a decision. CM will continue to follow and will assist as needed with dc plans/needs. DCP REVIEW SUMMARY ANTICIPATED D/C DATE: EXPECTED LOS : CASE STATUS: DCP Initiated INITIAL REVIEW: 01/15/2021 INITIAL REVIEWER: Marino Arenas FINAL DISCHARGE DISPOSITION: : FINAL REVIEWER: FINAL REVIEW DATE: DCP Focus Questions & Answers DCP Evaluation QUESTION: ANSWER Patient and/or caregiver agree upon recommended discharge plan? : Yes Family / Caregiver's ability to cope with chronic illness: : a. Adequate (ability to meet patient's medical needs, ensures patient attends medical appts.) Patient's current cognitive status: : *Oriented to person, place, situation, time and present Patient's ability to cope with chronic illness : d. No chronic illness Patient gives permission to discuss discharge plans with: (name, relationship and number) : his spouse, Jacinda Rosado, Does the patient have the ability to pay for or attain post discharge needs / services? : Yes Functional screen assessment: : Basic needs can adequately be met by self Family / Caregiver's ability to cope with chronic illness: : a. Adequate (ability to meet patient's medical needs, ensures patient attends medical appts.) Physical Status: : Independent with ADL's Is there a likelihood that the patient will require additional services to return to the preadmission environment? : Yes Living Arrangements: : Home with Spouse/Significant Other Other Equipment comments: : ASPEN QUICK DRAW LUMBAR CORSET Patient with capacity for self-care or can be cared for in same environment as prior to hospitalization? : Yes Baseline cognitive status: : *Oriented to person, place, situation, time and present Physical environment modification needed / anticipated for discharge: : No Medication Management: : Patient states can read and understand medication labels Medication Management: : Patient states can afford medications Pharmacy name(s): : [facility] Does Patient have transportation to get home and to follow-up medical appointments when discharged from the hospital? : Yes Would patient like to participate in any Care Coordination programs (if applicable): : Not applicable Does the patient have electricity at home? : Yes Does the patient have running water in their house? : Yes Equipment in use: : Walker - Rolling Mental health screen: : No mental health history DCP Re-evaluation QUESTION: ANSWER Would patient like to participate in any Care Coordination programs (if applicable): : Not applicable PATIENT: JAEL ROSADO ENCOUNTER: [id number] MEDICAL RECORD#: [id number] ADMISSION DATE: 01/15/2021 DISCHARGE DATE: ATTENDING MD: KILEY AMARAL : AGE: 75 MARITAL STATUS: M DC PLAN ID: [id number] FACILITY: [facility] PRINTED ON: 01/19/21 13:16 CT All edits/amendments must be made on the electronic document DICTATION DATE: 01/19/21 131 BENCH REPAIR TECHNICIAN: BARRY 01/19/21 1316 RPT#: [id number] DC DATE: STATUS: ADM IN [facility] [address] [place] [address] END OF REPORT
--- NOTE | 2021-01-19 19:45 | NUR ---
RECEIVED BEDSIDE REPORT. RESTING LAYING SUPINE IN BED WITH HOB ELEVATED. ALERT AND ORIENTED X 4. BEDFAST, NO DISTRESS NOTED. PIV TO RIGHT AC SALINE LOCKED DRESSING CLEAN/DRY/INTACT, BACK BRACE IN PLACE. EDUCATION PROVIDED FOR CALL LIGHT AND NEEDS, CALL LIGHT IN REACH, BED LOCKED IN LOW POSITION.
--- NOTE | 2021-01-20 01:15 | NUR ---
PT C/O OF MISSING FET PATCH, SEARCHED BODY AND BED, PATCH FOUND STUCK TO FLOOR. WASTED PATCH AND APPLIED NEW ONE.
[2021-01-20 04:00] VITALS: BP 134/72
[2021-01-20] MEDS ORDERED: CLEOCIN HCL300 MG PO (08:17)
[2021-01-20] MEDS ORDERED: DURAGESIC1 EAC4 TRANSDERM (08:18)
[2021-01-20] MEDS ORDERED: HYDROCODON-ACE1 EAC7 PO (08:18)
[2021-01-20 08:41] VITALS: BP 131/72
--- NOTE | 2021-01-20 10:10 | MORECARE ---
CASE MANAGEMENT DISCHARGE SUMMARY PATIENT: JAEL ROSADO UNIT: [id number] ADM DATE: 01/15/21 AGE: 75 : 45 SEX: M ROOM/BED: D.2222 AUTHOR: JOSE ARMANDO,DOC PHYSICIAN: REFERRING PHYSICIAN: KILEY GARCIA MD DATE OF SERVICE: 01/20/21 Case Management Discharge Planning Summary COMMENTS ENTERED DATE: 01/20/21 10:06 CT COMMENT TYPE: Discharge Planning REVIEWER: Sameera Mckinley CM met with patient and his about dc needs. He needs a walker for home, declines home health. They state he may do outpatient physical therapy. [employer] [facility] will bring walker to patient's room then he can dc to home with . IMM and choice letter signed and copy placed on chart. Refusal signed for home health. CM to follow and assist as needed. ENTERED DATE: 01/17/21 12:48 CT COMMENT TYPE: Discharge Planning REVIEWER: Sameera Mckinley ORDER FAXED [place] [employer] [facility] [place]. ENTERED DATE: 01/16/21 18:15 CT COMMENT TYPE: Discharge Planning REVIEWER: Marino Arenas Patient lives independently with his spouse, Jacinda Rosado, . Patient did not want to make a choice of DME company. CM explained that CM are not DME representatives and cannot give him a detailed explanation of lumbar support items or which companies carry the Lumbar corset that has been ordered. Patient would like to review and research DME companies before making a decision on which company to supply the [place] Quick Draw Lumbar Corset. CM left a list of DME companies with the patient. The patient further stated that he would like to speak with a physician further about the lumbar support device before making a decision. CM will continue to follow and will assist as needed with dc plans/needs. DCP REVIEW SUMMARY ANTICIPATED D/C DATE: EXPECTED LOS : CASE STATUS: DCP Initiated INITIAL REVIEW: 01/15/2021 INITIAL REVIEWER: Marino Arenas FINAL DISCHARGE DISPOSITION: : FINAL REVIEWER: FINAL REVIEW DATE: DCP Focus Questions & Answers DCP Evaluation QUESTION: ANSWER Patient and/or caregiver agree upon recommended discharge plan? : Yes Family / Caregiver's ability to cope with chronic illness: : a. Adequate (ability to meet patient's medical needs, ensures patient attends medical appts.) Patient's current cognitive status: : *Oriented to person, place, situation, time and present Patient's ability to cope with chronic illness : d. No chronic illness Patient gives permission to discuss discharge plans with: (name, relationship and number) : his spouse, Jacinda Rosado, Does the patient have the ability to pay for or attain post discharge needs / services? : Yes Functional screen assessment: : Basic needs can adequately be met by self Family / Caregiver's ability to cope with chronic illness: : a. Adequate (ability to meet patient's medical needs, ensures patient attends medical appts.) Physical Status: : Independent with ADL's Is there a likelihood that the patient will require additional services to return to the preadmission environment? : Yes Living Arrangements: : Home with Spouse/Significant Other Other Equipment comments: : ASPEN QUICK DRAW LUMBAR CORSET Patient with capacity for self-care or can be cared for in same environment as prior to hospitalization? : Yes Baseline cognitive status: : *Oriented to person, place, situation, time and present Physical environment modification needed / anticipated for discharge: : No Medication Management: : Patient states can read and understand medication labels Medication Management: : Patient states can afford medications Pharmacy name(s): : [facility] Does Patient have transportation to get home and to follow-up medical appointments when discharged from the hospital? : Yes Would patient like to participate in any Care Coordination programs (if applicable): : Not applicable Does the patient have electricity at home? : Yes Does the patient have running water in their house? : Yes Equipment in use: : Walker - Rolling Mental health screen: : No mental health history DCP Re-evaluation QUESTION: ANSWER Would patient like to participate in any Care Coordination programs (if applicable): : Not applicable PATIENT: JAEL ROSADO ENCOUNTER: [id number] MEDICAL RECORD#: [id number] ADMISSION DATE: 01/15/2021 DISCHARGE DATE: ATTENDING MD: KILEY AMARAL : AGE: 75 MARITAL STATUS: M DC PLAN ID: [id number] FACILITY: [facility] PRINTED ON: 01/20/21 10:10 CT All edits/amendments must be made on the electronic document DICTATION DATE: 01/20/21 1010 VENEER SAWYER: BARRY 01/20/21 1010 RPT#: [id number] DC DATE: STATUS: ADM IN [facility] [address] [place] [address] END OF REPORT
--- NOTE | 2021-01-20 11:41 | NUR ---
I have reviewed this patient and I concur with the Shift Assessment completed by the Licensed Practical Nurse today this shift.
--- NOTE | 2021-01-20 13:38 | NUR ---
DC HOME AT THIS TIME WITH ALL PERSONAL BELONGING. IV DC. DAUGHTER AT BEDSIDE VOICE UNDERSTANDING OF DC INSTRUCTION. STABLE CONDITION UPON DEPARTURE.
[2021-01-20 13:42] VITALS: BP 129/84
--- NOTE | 2021-01-21 13:18 | MORECARE ---
CASE MANAGEMENT DISCHARGE SUMMARY PATIENT: JAEL ROSADO UNIT: [id number] ADM DATE: 01/15/21 AGE: 75 : 45 SEX: M ROOM/BED: D.2222 AUTHOR: JOSE ARMANDO,DOC PHYSICIAN: REFERRING PHYSICIAN: KILEY GARCIA MD DATE OF SERVICE: 01/21/21 Case Management Discharge Planning Summary COMMENTS ENTERED DATE: 01/20/21 10:06 CT COMMENT TYPE: Discharge Planning REVIEWER: Sameera Mckinley CM met with patient and his about dc needs. He needs a walker for home, declines home health. They state he may do outpatient physical therapy. [facility] will bring walker to patient's room then he can dc to home with . IMM and choice letter signed and copy placed on chart. Refusal signed for home health. CM to follow and assist as needed. ENTERED DATE: 01/17/21 12:48 CT COMMENT TYPE: Discharge Planning REVIEWER: Sameera Mckinley ORDER FAXED TO [employer] [facility] FOR BACK BRACE TODAY. ENTERED DATE: 01/16/21 18:15 CT COMMENT TYPE: Discharge Planning REVIEWER: Marino Arenas Patient lives independently with his spouse, Jacinda Rosado, . Patient did not want to make a choice of DME company. CM explained that CM are not DME representatives and cannot give him a detailed explanation of lumbar support items or which companies carry the Lumbar corset that has been ordered. Patient would like to review and research DME companies before making a decision on which company to supply the [employer] Quick Draw Lumbar Corset. CM left a list of DME companies with the patient. The patient further stated that he would like to speak with a physician further about the lumbar support device before making a decision. CM will continue to follow and will assist as needed with dc plans/needs. DCP REVIEW SUMMARY ANTICIPATED D/C DATE: EXPECTED LOS : CASE STATUS: DCP Initiated INITIAL REVIEW: 01/15/2021 INITIAL REVIEWER: Marino Arenas FINAL DISCHARGE DISPOSITION: : FINAL REVIEWER: FINAL REVIEW DATE: DCP Focus Questions & Answers DCP Evaluation QUESTION: ANSWER Patient and/or caregiver agree upon recommended discharge plan? : Yes Family / Caregiver's ability to cope with chronic illness: : a. Adequate (ability to meet patient's medical needs, ensures patient attends medical appts.) Patient's current cognitive status: : *Oriented to person, place, situation, time and present Patient's ability to cope with chronic illness : d. No chronic illness Patient gives permission to discuss discharge plans with: (name, relationship and number) : his spouse, Jacinda Rosado, Does the patient have the ability to pay for or attain post discharge needs / services? : Yes Functional screen assessment: : Basic needs can adequately be met by self Family / Caregiver's ability to cope with chronic illness: : a. Adequate (ability to meet patient's medical needs, ensures patient attends medical appts.) Physical Status: : Independent with ADL's Is there a likelihood that the patient will require additional services to return to the preadmission environment? : Yes Living Arrangements: : Home with Spouse/Significant Other Other Equipment comments: : [employer] QUICK DRAW LUMBAR CORSET Patient with capacity for self-care or can be cared for in same environment as prior to hospitalization? : Yes Baseline cognitive status: : *Oriented to person, place, situation, time and present Physical environment modification needed / anticipated for discharge: : No Medication Management: : Patient states can read and understand medication labels Medication Management: : Patient states can afford medications Pharmacy name(s): : [facility] Does Patient have transportation to get home and to follow-up medical appointments when discharged from the hospital? : Yes Would patient like to participate in any Care Coordination programs (if applicable): : Not applicable Does the patient have electricity at home? : Yes Does the patient have running water in their house? : Yes Equipment in use: : Walker - Rolling Mental health screen: : No mental health history DCP Re-evaluation QUESTION: ANSWER Would patient like to participate in any Care Coordination programs (if applicable): : Not applicable PATIENT: JAEL ROSADO ENCOUNTER: [id number] MEDICAL RECORD#: [id number] ADMISSION DATE: 01/15/2021 DISCHARGE DATE: 01/20/2021 ATTENDING MD: KILEY AMARAL : AGE: 75 MARITAL STATUS: M DC PLAN ID: [id number] FACILITY: [facility] PRINTED ON: 01/21/21 13:18 CT All edits/amendments must be made on the electronic document DICTATION DATE: 01/21/211317 HOSTING ENGINEER: BARRY 01/21/21 1318 RPT#: [id number] DC DATE:01/20/21 STATUS: DIS IN [facility] [address] [place] [address] END OF REPORT
== END 2021-01-20 14:05 | disposition home or self-care (01) | DRG 552 ==
LOC: D.ER 00:13 → OBSVTIME 03:08 → D.EDHOLD 03:08 → D.MS 12:45
PROVIDERS: Family Medicine; ADMIT Family Medicine; ATTEND Family Medicine
DX: S32.019A Unspecified fracture of first lumbar vertebra, initial encounter for closed fracture (principal); S06.0X9A Concussion with loss of consciousness of unspecified duration, initial encounter; V48.5XXA Car driver injured in noncollision transport accident in traffic accident, initial encounter; M54.31 Sciatica, right side; G62.9 Polyneuropathy, unspecified; M54.2 Cervicalgia; I48.0 Paroxysmal atrial fibrillation; E03.9 Hypothyroidism, unspecified; G25.81 Restless legs syndrome; I10 Essential (primary) hypertension; L08.9 Local infection of the skin and subcutaneous tissue, unspecified